=== PATIENT | female | born 1990 ===

== ENCOUNTER 2022-05-07 05:34 | Day surgery (SDC) | payer OTHER ==
[~2022-05-07] VITALS: Ht 160 cm; Wt 52.2 kg
[~2022-05-07 05:34] MED LIST: LEVOTHYROXINE25 MCG PO
== END 2022-05-07 14:30 | disposition home or self-care (01) ==
LOC: CIR.AMB 05:34
PROVIDERS: ATTEND Obstetrics & Gynecology Gynecologic Oncology
DX: D27.1 Benign neoplasm of left ovary (principal); D28.2 Benign neoplasm of uterine tubes and ligaments; Z91.040 Latex allergy status; E03.9 Hypothyroidism, unspecified; Z20.822 Contact with and (suspected) exposure to COVID-19